=== PATIENT | male | born 1995 | race Caucasian/White ===

== ENCOUNTER 2024-07-26 07:34 | Outpatient (CLI) | payer OTHER, SELFPAY ==
--- NOTE | 2024-07-26 07:42 | MR_ITS ---
WS: [id number] MRI LUMBAR SPINE NONCONTRAST TECHNIQUE: Sagittal T1, T2 and STIR imaging. Axial T1 and T2 imaging. CLINICAL INFORMATION: LOW BACK PAIN WITH RADICULOPATHY COMPARISON: None. FINDINGS: Mild lumbar curve. No acute compression. No high-grade central canal stenosis. Small shallow central protrusion cervical spine on the seam presser imaging at C6-7. L1-L2: Mild facet arthropathy. L2-L3: Mild facet arthropathy. Spinal canal and foramen are patent. L3-L4: Mild facet arthropathy. Spinal canal and foramen are patent. L4-L5: Mild annular bulging. Slight effacement of the ventral thecal sac. Slight narrowing of the RIG HT subarticular recess. Foramen are patent. Mild facet arthropathy. L5-S1: Mild annular bulging with encroachment on traversing LEFT S1 nerve root. Mild facet arthropath y. Spinal canal and foramina are patent. Visualized pelvic bony structures: Normal. Paravertebral soft tissues: Normal. MR/MR lumbar spine wo con* [id number] IMPRESSION: 1. Mild annular bulge L4-5 with slight narrowing of the RIGHT greater than LEF T subarticular recess. 2. Mild annular bulging L5-S1 with slight encroachment on the traversing LEFT S1 nerve root. 3. Mild facet arthropathy worse at L4-L5 and L5-S1. 4. Small central protrusion in the cervical spine on the seam presser imaging with a small annular fissure at C6-7.
== END 2024-07-26 07:35 | disposition home or self-care (01) ==
PROVIDERS: PCP Nurse Practitioner; Visit Provider Nurse Practitioner
DX: M50.20 Other cervical disc displacement, unspecified cervical region (principal)
CPT/HCPCS: 72148